=== PATIENT | female | born 1970 | race Caucasian/White ===

== ENCOUNTER 2020-06-14 10:07 | Inpatient (IN) | payer BC, OTHER ==
[~2020-06-14] VITALS: Ht 177.8 cm; Wt 74.8 kg
[2020-06-14] MEDS ORDERED: ONDANSETRON HCL 4MG/2ML INJ IV STA ×2 (10:51→17:09)
[2020-06-14] MEDS ORDERED: FAMOTIDINE 20MG/2ML VIAL IV STA (10:51)
[2020-06-14] MEDS ORDERED: SODIUM CHLORIDE 0.9% 1,000 ML IV ONE (11:00)
[2020-06-14 11:58] LABS: HEMOGLOBIN. 14.2 g/dL (12.0-16.0); MEAN CORPUSCULAR HEMOGLOBIN 31.4 pg (28.0-32.0); MEAN CORPUSCULAR VOLUME 92.9 fL (81.0-99.0); MEAN PLATELET VOLUME 8.7 fl (7.4-10.4); PLATELET 309 x1000/uL (130-400); RED BLOOD CELL COUNT 4.52 mill/uL (4.2-5.4); RED CELL DISTRIBUTION WIDTH 12.9 % (11.6-14.6)
[2020-06-14 12:05] LABS: CHLORIDE 109 mEq/L (98-107)
[2020-06-14 12:16] LABS: PROTHROMBIN TIME 10.7 sec (9.6-11.0)
[2020-06-14 12:42] LABS: CLARITY URINE CLEAR (CLEAR); COLOR URINE YELLOW (YELLOW); KETONES URINE 4+ (NEGATIVE); LEUKOCYTE ESTERASE URINE NEGATIVE (NEGATIVE); NITRITE URINE NEGATIVE (NEGATIVE); OCCULT BLOOD URINE NEGATIVE (NEGATIVE); PH URINE >=9.0 (4.5-8.0); PROTEIN URINE NEGATIVE (NEGATIVE); SPECIFIC GRAVITY URINE 1.021 (1.005-1.030); UROBILINOGEN URINE 0.2 E.U./dL (0.2-1.0)
[2020-06-14] MEDS ORDERED: METO-293 MT (12:53)
[2020-06-14] MEDS ORDERED: METOCLOPRAMIDE HCL 10MG/2ML VIAL IV ONE (13:00)
[2020-06-14 14:43] LABS: PLATELET ESTIMATE NORMAL
[2020-06-14] MEDS ORDERED: IOHEXOL-300 100 ML BOTTLE ONE (16:45)
[2020-06-14] MEDS ORDERED: MORPHINE SULFATE 4 MG/ML CPJ (NOT FOR IM USE) IV STA (17:09)
[2020-06-14] MEDS ORDERED: PIPERACILLIN/TAZ 3.375G PREMIX 50 ML IV ONE (17:15)
[2020-06-14] MEDS ORDERED: SUCCINYLCHOLINE CHLORIDE 200MG/10ML IV ONE (17:59)
[2020-06-14] MEDS ORDERED: FENTANYL CITRATE/PF 50MCG/ML 2ML VIAL ONE (17:59)
[2020-06-14] MEDS ORDERED: ROCURONIUM BROMIDE 10MG/ML VIAL 5ML IV ONE (17:59)
[2020-06-14] MEDS ORDERED: LIDOCAINE HCL/PF 1% 10 MG/ML 5ML VIAL ONE (17:59)
[2020-06-14] MEDS ORDERED: PROPOFOL 200MG/20ML VIAL IV ONE (17:59)
[2020-06-14] MEDS ORDERED: MIDAZOLAM HCL 2 MG/2 ML VIAL ONE (17:59)
[2020-06-14] MEDS ORDERED: HYDROCODONE/ACETAMINOPHEN 5/325MG TABLET PO PRN ×2 (18:00)
[2020-06-14] MEDS ORDERED: MORPHINE SULFATE 2 MG/ML CPJ (NOT FOR IM USE) IV PRN (18:00)
[2020-06-14] MEDS ORDERED: MORPHINE SULFATE 4 MG/ML CPJ (NOT FOR IM USE) IV PRN (18:00)
[2020-06-14] MEDS ORDERED: DEXT 5%/0.45% NACL KCL 20MEQ/L 1,000 ML IV SCH (18:00)
[2020-06-14] MEDS ORDERED: ONDANSETRON HCL 4MG/2ML INJ IV PRN ×3 (18:00→19:15)
[2020-06-14] MEDS ORDERED: SKIN ADHESIVE 0.7 GM EA TOP ONE (18:10)
[2020-06-14] MEDS ORDERED: BUPIVACAINE HCL 0.5% (5MG/ML) 50ML ONE (18:10)
[2020-06-14] MEDS ORDERED: GUAIFENESIN 200MG/10ML SUGAR FREE UDC PO PRN (18:15)
[2020-06-14] MEDS ORDERED: CLONIDINE 0.1MG TABLET PO PRN (18:15)
[2020-06-14] MEDS ORDERED: ACETAMINOPHEN 325MG TABLET PO PRN ×2 (18:15)
[2020-06-14] MEDS ORDERED: NITROGLYCERIN 0.4MG TABLET SL SL PRN (18:15)
[2020-06-14] MEDS ORDERED: ZOLPIDEM TARTRATE 5MG TABLET PO PRN (18:15)
[2020-06-14] MEDS ORDERED: IPRATROPIUM/ALBUTEROL 0.5-3(2.5)MG/3ML NEB NEB PRN (18:15)
[2020-06-14] MEDS ORDERED: DOCUSATE SODIUM 100MG CAPSULE PO PRN (18:15)
[2020-06-14] MEDS ORDERED: MAGNESIUM/ALUMINUM HYDROXIDE/SIMETHICONE 30ML UDC PO PRN (18:15)
[2020-06-14] MEDS ORDERED: DEXAMETHASONE 4MG/ML 1ML VIAL ONE (18:39)
[2020-06-14] MEDS ORDERED: ONDANSETRON HCL 4MG/2ML INJ ONE (19:11)
[2020-06-14] MEDS ORDERED: METOCLOPRAMIDE HCL 10MG/2ML VIAL ONE (19:11)
[2020-06-14] MEDS ORDERED: KETOROLAC 30MG/ML VIAL ONE (19:13)
[2020-06-14] MEDS ORDERED: HYDROMORPHONE HCL/PF 2MG/ML CPJ IV PRN (19:15)
[2020-06-14] MEDS ORDERED: NEOSTIGMINE METHYLSULFATE 1MG/ML 10 ML VIAL ONE (19:24)
[2020-06-14] MEDS ORDERED: GLYCOPYRROLATE 0.2 MG/ML 2ML VIAL ONE (19:24)
[2020-06-14] MEDS: FAMOTIDINE 20MG TABLET PO SCH (21:00)
[2020-06-14] MEDS: ASCORBIC ACID 500 MG TABLET PO SCH (21:00)
[2020-06-14] MEDS: SODIUM CHLORIDE 0.9% INJ 3ML FLUSH IVF SCH (22:00)
[2020-06-15] VITALS: BP 91/61
[2020-06-15 02:57] VITALS: BP 101/58
[2020-06-15] MEDS ORDERED: ALBU6.7H9 INH (05:31)
[2020-06-15] MEDS ORDERED: PREMPRO (05:34)
[2020-06-15] MEDS ORDERED: LIRA0.6P2 SQ (05:36)
[2020-06-15] MEDS ORDERED: SIMV10TA97 MT (05:37)
[2020-06-15] MEDS ORDERED: TOPI50TA MT (05:39)
[2020-06-15] MEDS ORDERED: ESCI20TA MT (05:40)
[2020-06-15] MEDS: SODIUM CHLORIDE 0.9% INJ 3ML FLUSH IVF SCH (06:00)
[2020-06-15] MEDS ORDERED: *PATIENT'S OWN MEDICATION STORAGE XX SCH (06:15)
[2020-06-15 08:00] VITALS: BP_SYST 101; BP_SYST 94; BP_DIAS 57; BP_DIAS 63
[2020-06-15] MEDS ORDERED: ENOXAPARIN 40MG/0.4ML SYR SUBCUT SCH (09:00)
[2020-06-15] MEDS ORDERED: CHOLECALCIFEROL (D3) 1000 UNIT TABLET PO SCH (09:00)
[2020-06-15] MEDS ORDERED: ZINC SULFATE 220 MG ( 50 ) CAPSULE PO SCH (09:00)
[2020-06-15] MEDS: FAMOTIDINE 20MG TABLET PO SCH (09:28)
[2020-06-15] MEDS: ASCORBIC ACID 500 MG TABLET PO SCH (09:29)
[2020-06-15 10:53] VITALS: BP 101/63
[2020-06-15] MEDS ORDERED: DEXT 5%/0.45% NACL KCL 20MEQ/L 1,000 ML IV SCH ×2 (16:00)
== END 2020-06-15 13:09 | disposition home or self-care (01) | DRG 343 ==
LOC: ER 10:07 → 6EST 17:38 → EDBEDREQ 17:41 → EDBEDREQSVC 17:41 → EDBEDREQTM 17:41 → ER 18:40 → SUPCPDRO 19:36 → ENRESERV 20:06 → CANBEDREQ 21:31
PROVIDERS: ADMIT Internal Medicine; ATTEND Internal Medicine
PROC: 0DTJ4ZZ Resection of Appendix, Percutaneous Endoscopic Approach (ICD-10-PCS; principal; 2020-06-14)
DX: K35.80 Unspecified acute appendicitis (principal); F32.9 Major depressive disorder, single episode, unspecified; Z20.822 Contact with and (suspected) exposure to COVID-19; E78.00 Pure hypercholesterolemia, unspecified; Z79.51 Long term (current) use of inhaled steroids; Z79.899 Other long term (current) drug therapy; Z88.5 Allergy status to narcotic agent
CPT/HCPCS: 36415; 74177; 80053; 81003; 85025; 87426; 88304; 93005; 99285; J0330; J1100; J1170; J1650; J1885; J2250; J2270; J2405; J2543; J2704; J2710; J2765; J3010; J3490; J7030; Q9967